=== PATIENT | female | born 1950 ===

== ENCOUNTER 2024-04-02 12:15 | Inpatient (IN) | payer OTHER ==
[~2024-04-02] VITALS: Ht 30.5 cm; Wt 81.6 kg
[2024-04-02] MEDS ORDERED: MESALAMINE DR400 MG PO (14:11)
[2024-04-02] MEDS ORDERED: ACTOS15 MG PO (14:11)
[2024-04-02] MEDS ORDERED: COZAAR25 MG PO (14:12)
[2024-04-02] MEDS ORDERED: [UNRECOGNIZED DRUG - OTHER] (14:14)
[2024-04-06 01:11] VITALS: BP 129/76; O2SAT 99
[2024-04-06] MEDS ORDERED: 0.9 % SODIUM CHLORIDE 1,000 ML IV SCH (09:45)
[2024-04-06] MEDS ORDERED: ENALAPRILAT DIHYDRATE 1.25 MG/ML VIAL IV PRN (09:45)
[2024-04-06] MEDS ORDERED: PROMETHAZINE HCL 50 MG/ML AMPUL IM PRN (09:45)
[2024-04-06] MEDS ORDERED: MEDROLPACK PO (09:59)
[2024-04-06] MEDS ORDERED: BACTRIM DS TAB1 EACH PO (09:59)
[2024-04-06] MEDS ORDERED: PERCOCET 5-3251 EACH PO (09:59)
[2024-04-06] MEDS ORDERED: GABAPENTIN100 M2 PO (10:00)
[2024-04-06] MEDS ORDERED: COLACE100 MG PO (10:00)
[2024-04-06] MEDS ORDERED: NEURONTIN800 MG PO (10:01)
[2024-04-06] MEDS ORDERED: VANCOMYCIN HCL 1,000 MG VIAL IV ONE (11:30)
[2024-04-06] MEDS ORDERED: METHYLPREDNISOLONE SOD SUCC 125 MG VIAL IV ONE ×2 (11:45)
[2024-04-06] MEDS ORDERED: VANCOMYCIN HCL 1,000 MG VIAL SPEPROC ONE (11:45)
[2024-04-06] MEDS ORDERED: VANCOMYCIN HCL 1,000 MG VIAL IR ONE (11:45)
[2024-04-06] MEDS ORDERED: METHYLPREDNISOLONE ACETATE 80 MG/ML VIAL IU ONE (11:45)
[2024-04-06] MEDS ORDERED: HEMOSTATIC MATRIX WITH THROMBIN KIT TOP ONE (12:30)
[2024-04-06] MEDS ORDERED: ACETAMINOPHEN 500 MG GEL..CAP PO SCH (13:00)
[2024-04-06] MEDS ORDERED: MORPHINE SULFATE 4 MG/ML CARTRIDGE IV SCH (13:00)
[2024-04-06] MEDS ORDERED: DOCUSATE SODIUM 100MG CAP PO SCH (13:00)
[2024-04-06] MEDS ORDERED: MORPHINE SULFATE 4 MG/ML VIAL IV ONE ×2 (14:05→14:35)
[2024-04-06] MEDS ORDERED: CEFAZOLIN SODIUM 1,000 MG in 0.9 % SODIUM CHLORIDE 50 ML IV SCH (17:00)
[2024-04-06] MEDS ORDERED: METHYLPREDNISOLONE SOD SUCC 125 MG VIAL IV SCH (17:00)
[2024-04-06] MEDS ORDERED: FAMOtidine 20 MG TABLET PO SCH (17:00)
[2024-04-06] MEDS ORDERED: GABAPENTIN 800 MG TABLET PO SCH (21:00)
[2024-04-06] MEDS ORDERED: VANCOMYCIN HCL 1,000 MG VIAL IV SCH (21:00)
[2024-04-06 22:16] VITALS: BP 111/78; O2SAT 99
[2024-04-07] MEDS ORDERED: SODIUM CHLORIDE 0.45 % 1,000 ML IV SCH
[2024-04-07 04:00] VITALS: BP 148/74; O2SAT 98
[2024-04-07 05:48] LABS: CALCIUM 8.3 mg/dL (8.5-10.1); CREATININE SERUM 0.86 mg/dL (0.55-1.02); GFR 64.86; POTASSIUM 4.96 mEq/L (3.5-5.1)
[2024-04-07] MEDS ORDERED: OxyCODONE HCL/APAP UD (PERCOCET) PO PRN (06:01)
[2024-04-07 06:31] LABS: MEAN CELL VOLUME 89.7 fL (80.00-100.00); MEAN CORPUSCULAR HEMOGLOBIN 30.8 pg (27.00-32.0); MEAN CORPUSCULAR HGB CONC 34.3 g/dl (32.0-36.0); PLATELET COUNT 164 K/uL (150-450); RED BLOOD COUNT 3.57 M/uL (4.00-6.00); RED CELL DISTRIBUTION WIDTH 14.3 % (11.5-14.5)
[2024-04-07] MEDS ORDERED: TAMSULOSIN HCL 0.4 MG CAP PO SCH (09:00)
[2024-04-07] MEDS ORDERED: LOSARTAN POTASSIUM 25 MG TABLET PO SCH (09:00)
[2024-04-07] MEDS ORDERED: INSULIN LISPRO 1,000 UNIT/10 ML UNITS SUBCUTANEO PRN (09:15)
[2024-04-07] MEDS ORDERED: DEXTROSE 50 % IN WATER 0.5 G/ML DISP.SYRIN IV PRN (09:15)
[2024-04-07 12:50] VITALS: BP 151/74; O2SAT 97
[2024-04-07 13:43] VITALS: BP 149/54; O2SAT 99
[2024-04-07 16:00] VITALS: BP 122/66; O2SAT 98
[2024-04-07 20:00] VITALS: BP 144/69; O2SAT 98
[2024-04-08 01:00] VITALS: BP 106/56; O2SAT 98
[2024-04-08 08:18] VITALS: BP 117/69; O2SAT 100
[2024-04-08 16:00] VITALS: BP 151/67; O2SAT 99
== END 2024-04-08 17:31 | DRG 402 ==
LOC: ADM 12:15 → EDSTATUS 12:15 → O/R 04-06 05:46 → PED 04-06 05:46 → EDBD 04-06 12:15 → SURH 04-06 12:15 → PED 04-06 16:52
PROVIDERS: ADMIT Orthopaedic Surgery Orthopaedic Surgery of the Spine; ATTEND Orthopaedic Surgery Orthopaedic Surgery of the Spine
PROC: XRGB0R7 Fusion of Lumbar Vertebral Joint using Custom-Made Anatomically Designed Interbody Fusion Device, Open Approach, New Technology Group 7 (ICD-10-PCS; 2024-04-06)
PROC: 0ST20ZZ Resection of Lumbar Vertebral Disc, Open Approach (ICD-10-PCS; 2024-04-06)
PROC: 0QB30ZZ Excision of Left Pelvic Bone, Open Approach (ICD-10-PCS; 2024-04-06)
PROC: 07DR0ZZ Extraction of Iliac Bone Marrow, Open Approach (ICD-10-PCS; 2024-04-06)
PROC: 4A1104G Monitoring of Peripheral Nervous Electrical Activity, Intraoperative, Open Approach (ICD-10-PCS; 2024-04-06)
PROC: 0SG0071 Fusion of Lumbar Vertebral Joint with Autologous Tissue Substitute, Posterior Approach, Posterior Column, Open Approach (ICD-10-PCS; principal; 2024-04-06 14:00)
DX: M43.16 Spondylolisthesis, lumbar region (principal); M48.062 Spinal stenosis, lumbar region with neurogenic claudication; I10 Essential (primary) hypertension